=== PATIENT | male | born 1960 | race Caucasian/White ===

== ENCOUNTER 2024-10-09 05:39 | Day surgery (SDC) | payer MEDICARE ==
[2024-10-09] MEDS ORDERED: Lactated Ringers 1,000 ML IV ONE (06:14)
[2024-10-09] MEDS: Lactated Ringers 1,000 ML IV SCH (06:33)
[2024-10-09] MEDS ORDERED: propofoL IV ONE ×3 (07:06→07:47)
[2024-10-09] MEDS ORDERED: Versed 2 MG/2 ML Injection ONE (07:06)
[2024-10-09 08:28] VITALS: RESP 20
[2024-10-09 08:39] VITALS: BP 163/94; PULSE 64; TEMP 97.8; O2SAT 98
--- NOTE | 2024-10-10 09:41 | OP ---
SURGERY DATE/TIME: 10/09/2024 [id number] PREOPERATIVE DIAGNOSES: 1) Screening colonoscopy. 2) Family history of colon cancer. POSTOPERATIVE DIAGNOSIS: Colon polyps x5. PROCEDURE: Colonoscopy. SURGEON: Adiel Kumari MD ANESTHESIA: MAC by Gaurav Torres CRNA QUANTITATIVE BLOOD LOSS: Minimal. SPECIMENS: There was 1 hot snare polypectomy from the descending colon and 4 hot forceps polypectomies, 1 from the descending colon, 2 from the sigmoid colon, and 1 from the rectum. DESCRIPTION OF PROCEDURE AND FINDINGS: After informed written consent was obtained, the patient was taken to the endoscopy suite. He was placed in the left lateral decubitus position. Anesthesia was titrated to the desired level of consciousness. Digital rectal exam showed normal sphincter tone and no internal lesions. Scope was inserted into the rectum, and sequentially the entire colon was traversed. There was some difficulty navigating past the hepatic flexure, and patient had to be repositioned, but eventually cecum was reached and verified with direct visualization of the ileocecal valve. Upon withdrawal in the proximal descending colon, there was a small sessile polyp that was grasped with forceps, cauterized, and removed in its entirety. There was another larger pedunculated polyp which was encircled with a snare, cauterized at the base, removed in its entirety and retrieved in a polyp trap. The remainder of the exam showed 2 small sessile polyps in the sigmoid colon which were grasped with the forceps, cauterized, removed in their entirety and hemostatic after removal. In the proximal rectum, in the rectosigmoid junction, there was another small sessile polyp grasped with the forceps, cauterized, and sent for pathology testing. Prior to withdrawal, retroflection showed no internal lesions. Scope was removed, and patient was transferred to the recovery room in good condition. He will follow up in a week for pathology results.
== END 2024-10-09 09:05 | disposition home or self-care (01) ==
LOC: SDC 05:39
PROVIDERS: ATTEND Family Medicine
DX: Z12.11 Encounter for screening for malignant neoplasm of colon (principal); Z80.0 Family history of malignant neoplasm of digestive organs; E11.9 Type 2 diabetes mellitus without complications; D12.7 Benign neoplasm of rectosigmoid junction; D12.4 Benign neoplasm of descending colon; D12.5 Benign neoplasm of sigmoid colon
CPT/HCPCS: 82947; 93005; J2250; J2704